=== PATIENT | female | born 1990 | race Caucasian/White ===

== ENCOUNTER 2018-09-03 06:00 | Day surgery (SDC) | payer MEDICAID ==
[2018-09-03] MEDS ORDERED: Dextrose 5%-Lactated Ringers 1,000 ML IV SCH (06:30)
[2018-09-03] MEDS ORDERED: Glycopyrrolate 0.2 MG/ML 2 ML SDV IVPUSH ONE (06:30)
[2018-09-03] MEDS ORDERED: Propofol 200 MG/20 ML SDV ONE (07:05)
[2018-09-03] MEDS ORDERED: fentaNYL 100 MCG/2 ML SDV ONE (07:05)
[2018-09-03] MEDS ORDERED: Midazolam 1 MG/ML 2 ML SDV ONE (07:05)
[2018-09-03] MEDS ORDERED: Hydrocortisone Sodium Succinate 100 MG/2 ML SDV IV PRN (08:12)
[2018-09-03] MEDS ORDERED: Famotidine 20 MG/2 ML SDV IV PRN (08:13)
[2018-09-03] MEDS ORDERED: diphenhydrAMINE 50 MG/ML SDV IVPUSH PRN (08:13)
[2018-09-03] MEDS ORDERED: Sodium Chloride 0.9% 1,000 ML IV SCH (08:15)
--- NOTE | 2018-09-09 08:33 | OR ---
DATE OF PROCEDURE: 09/03/2018 SURGEON: Sreekanth Grace MD PREOPERATIVE DIAGNOSES: 1. Weight regain. 2. Epigastric pain and heartburn, status post previous sleeve gastrectomy. POSTOPERATIVE DIAGNOSES: Upper gastrointestinal endoscopy with antral biopsies for CLOtest. ANESTHESIA: IV sedation. INDICATIONS FOR PROCEDURE: This is a 28-year-old, status post sleeve gastrectomy done in [place] in 2014. Recently, she has had further problems with some weight regain, but also having quite a bit in the way of heartburn and epigastric discomfort. The plan is to proceed with an upper GI endoscopy with biopsies and/or dilation as indicated. Potential risks including bleeding and perforation were discussed, and the patient wishes to proceed. DETAILS OF PROCEDURE: The patient was taken to the operating room and placed in a left lateral decubitus position. IV sedation was administered, after which the upper GI endoscope was passed orally through the length of the esophagus and into the area of the sleeve gastrectomy, through the pyloric channel and to the proximal duodenum. Findings included a fair bit of redness in the distal esophagus. As one entered the sleeve gastrectomy, there was a large amount of retained food present, indicative of quite profound gastroparesis. There was quite a bit of redness in the gastric wall. There were no erosions or ulcers seen. The pyloric channel and proximal duodenum were unremarkable. Specifically, there was no outlet obstruction at the level of the pylorus. Biopsies were obtained from the antrum and sent for CLOtest for H. pylori. Minimal bleeding from the biopsy sites was seen, and the procedure was then concluded. Situation subsequently discussed with the patient. At age 28, this is a problem that would be best treated surgically, specifically the severe gastroparesis. It is likely related to longstanding type 2 diabetes mellitus and also possible injury to vagus nerves at the time of the sleeve gastrectomy. Medical management of this would entail termite exterminator use of prokinetic agents, as well as limitations of diet, in terms of an anti-bezoar diet. At age 28, she would be better served by proximal gastrectomy with Ivory-en-Y reconstruction, which would alleviate the problem. After discussion with the patient and family members present, the plan will be to proceed with surgical intervention this coming Sunday. Srekeanth Grace MD /[id number]
== END 2018-09-03 09:45 | disposition home or self-care (01) ==
LOC: JP.SDS 06:00
PROVIDERS: ATTEND Surgery
DX: K21.9 Gastro-esophageal reflux disease without esophagitis (principal); E66.9 Obesity, unspecified; Z68.41 Body mass index [BMI] 40.0-44.9, adult; E28.2 Polycystic ovarian syndrome; R56.9 Unspecified convulsions; F31.9 Bipolar disorder, unspecified; Z87.442 Personal history of urinary calculi; Z88.0 Allergy status to penicillin; Z88.8 Allergy status to other drugs, medicaments and biological substances; Z91.018 Allergy to other foods
CPT/HCPCS: 43239; 81025; 87081; J2250; J2704; J3010; J3490; J7030; J7042; Q0138

== ENCOUNTER 2018-09-06 08:14 | Inpatient (IN) | payer MEDICAID ==
[~2018-09-06 08:14] MED LIST: Dexamethasone 4 MG/ML SDV ONE; Glycopyrrolate 0.2 MG/ML 5 ML MDV ONE; Lidocaine 2% 100 MG/5 ML Syringe IVPUSH SCH; Neostigmine Methylsulfate 1 MG/ML 5 ML Syringe ONE; Ondansetron 4 MG/2 ML SDV ONE; Propofol 200 MG/20 ML SDV ONE; Rocuronium 50 MG/5 ML Vial ONE; Succinylcholine 200 MG/10 ML MDV ONE; cefOXitin 2 GM Vial ONE
[2018-09-06] MEDS ORDERED: Scopolamine 1.5 MG Transdermal Patch TRDERM ONE (08:30)
[2018-09-06] MEDS ORDERED: Gabapentin 300 MG Cap PO ONE (08:30)
[2018-09-06] MEDS ORDERED: Celecoxib 200 MG Cap PO ONE (08:30)
[2018-09-06] MEDS ORDERED: Acetaminophen 500 MG Tab PO ONE (08:30)
[2018-09-06] MEDS ORDERED: Dextrose 5%-Lactated Ringers 1,000 ML IV SCH (09:00)
[2018-09-06] MEDS ORDERED: cefOXitin 2 GM in Sodium Chloride 0.9% 50 ML IV ONE (10:15)
[2018-09-06] MEDS ORDERED: Ketamine 500 MG/5 ML MDV IV SCH (10:30)
[2018-09-06] MEDS ORDERED: Ketamine 50 MG in Sodium Chloride 0.9% 49.5 ML IV SCH (10:30)
[2018-09-06] MEDS ORDERED: fentaNYL 100 MCG/2 ML SDV IVPUSH ONE ×2 (13:09→13:24)
[2018-09-06] MEDS ORDERED: hydrOXYzine HCl 100 MG/2 ML SDV IM ONE (13:09)
[2018-09-06] MEDS ORDERED: HYDROmorphone 0.5 MG/0.5 ML Syringe IVPUSH PRN (15:00)
[2018-09-06] MEDS ORDERED: hydrOXYzine HCl 100 MG/2 ML SDV IM PRN (15:00)
[2018-09-06] MEDS ORDERED: Ondansetron 4 MG/2 ML SDV IVPUSH PRN (15:00)
[2018-09-06] MEDS ORDERED: Labetalol 20 MG/4 ML Syringe IVPUSH PRN (15:00)
[2018-09-06] MEDS ORDERED: Metoclopramide 10 MG/2 ML SDV IVPUSH PRN (15:00)
[2018-09-06] MEDS ORDERED: diphenhydrAMINE 50 MG/ML SDV IVPUSH PRN (15:00)
[2018-09-06] MEDS ORDERED: HYDROmorphone 1 MG/ML Syringe IV PRN (15:00)
[2018-09-06] MEDS: Acetaminophen Soln 650 MG/20.3 ML UD Cup PO SCH ×2 (16:40→20:15)
[2018-09-06] MEDS: MVI, Adult with Vitamin K 10 ML, Thiamine 200 MG, Chromium/Copper/Mang/Selen/Zn 1 ML in... IV SCH ×4 (16:40)
[2018-09-06] MEDS: Pantoprazole 40 MG Vial IVPUSH SCH (16:40)
[2018-09-06] MEDS: Lidocaine 0.4%/D5W 2 GM/500 ML BAG IV SCH (16:42)
[2018-09-06] MEDS: Heparin Sodium 5,000 Units/ML Vial SUBCUT SCH (18:03)
[2018-09-06] MEDS: cefOXitin 2 GM in Sodium Chloride 0.9% 50 ML IV SCH (18:03)
[2018-09-06] MEDS: Gabapentin 250 MG/5 ML Solution ML 470 ML Bottle PO SCH (20:14)
[2018-09-06] MEDS: Metoprolol Tartrate 25 MG Tab PO SCH (20:15)
[2018-09-06] MEDS: Dextrose 5%-Lactated Ringers 1,000 ML IV SCH (22:16)
[2018-09-07] MEDS: cefOXitin 2 GM in Sodium Chloride 0.9% 50 ML IV SCH ×2 (00:06→06:09)
[2018-09-07] MEDS ORDERED: Iohexol 647 MG/ML 50 ML SDV PO PRN (00:49)
[2018-09-07] MEDS: Acetaminophen Soln 650 MG/20.3 ML UD Cup PO SCH ×4 (02:28→21:04)
--- NOTE | 2018-09-07 02:59 | CRLCR ---
Indication: Ivory-en-Y gastric bypass Technique: Abdomen 2 view Comparison: None Findings/Impression: Two submitted images. On the 1st, contrast is present within the distal esophagus extending into the proximal small bowel without gross extravasation. Left upper quadrant drain is seen adjacent. On the subsequent image, there is filling of the small bowel with some linear high density adjacent to the drain although this appears to be part of a suture line. No convincing extravasation. At the inferior margin of the film note is made of a clip, probably part of a tubal ligation. Dictated by Quan Shafer MD @ Sep 07 2018 2:55AM Signed by Dr. Quan Shafer @ Sep 07 2018 2:57AM
[2018-09-07] MEDS: Dextrose 5%-Lactated Ringers 1,000 ML IV SCH (04:20)
[2018-09-07] MEDS: Heparin Sodium 5,000 Units/ML Vial SUBCUT SCH ×2 (06:09→18:18)
[2018-09-07] MEDS: Metoprolol Tartrate 25 MG Tab PO SCH ×2 (08:41→21:09)
[2018-09-07] MEDS: Celecoxib 200 MG Cap PO SCH (08:41)
[2018-09-07] MEDS ORDERED: LORazepam 0.5 MG Tab PO PRN (08:41)
[2018-09-07] MEDS ORDERED: Dextrose 5%-Lactated Ringers 1,000 ML IV SCH (08:45)
[2018-09-07] MEDS: Gabapentin 250 MG/5 ML Solution ML 470 ML Bottle PO SCH ×3 (08:49→21:03)
[2018-09-07] MEDS: DULoxetine 30 MG Cap PO SCH ×2 (09:48→21:03)
[2018-09-07] MEDS: Sodium Ferric Gluconate Cmplex 250 MG in Sodium Chloride 0.9% 100 ML IV SCH (09:48)
[2018-09-07] MEDS: Lidocaine 0.4%/D5W 2 GM/500 ML BAG IV SCH (09:49)
[2018-09-07] MEDS: metFORMIN 500 MG Tab PO SCH (09:49)
[2018-09-07] MEDS: Topiramate 100 MG Tab PO SCH ×2 (09:49→22:20)
[2018-09-07] MEDS: SCOPOLAMINE PATCH CHECK TOP SCH (09:49)
[2018-09-07] MEDS: MVI, Adult with Vitamin K 10 ML, Thiamine 200 MG, Chromium/Copper/Mang/Selen/Zn 1 ML in... IV SCH ×4 (16:41)
[2018-09-07] MEDS: Pantoprazole 40 MG Vial IVPUSH SCH (16:41)
[2018-09-07] MEDS ORDERED: Lurasidone 40 MG Tab PO SCH (21:00)
[2018-09-08] MEDS: Acetaminophen Soln 650 MG/20.3 ML UD Cup PO SCH ×2 (04:12→09:45)
[2018-09-08] MEDS: Heparin Sodium 5,000 Units/ML Vial SUBCUT SCH (05:20)
[2018-09-08] MEDS: Sodium Ferric Gluconate Cmplex 250 MG in Sodium Chloride 0.9% 100 ML IV SCH (08:37)
[2018-09-08] MEDS: Metoprolol Tartrate 25 MG Tab PO SCH (08:38)
[2018-09-08] MEDS: DULoxetine 30 MG Cap PO SCH (08:38)
[2018-09-08] MEDS: metFORMIN 500 MG Tab PO SCH (08:38)
[2018-09-08] MEDS: Celecoxib 200 MG Cap PO SCH (08:39)
[2018-09-08] MEDS ORDERED: Cyanocobalamin (Vitamin B12) 1,000 MCG/ML SDV IM ONE (09:00)
[2018-09-08] MEDS: Gabapentin 250 MG/5 ML Solution ML 470 ML Bottle PO SCH (09:44)
[2018-09-08] MEDS: Topiramate 100 MG Tab PO SCH (10:46)
[2018-09-08] MEDS: SCOPOLAMINE PATCH CHECK TOP SCH (10:47)
--- NOTE | 2018-09-08 12:06 | PN ---
DATE OF SERVICE: 09/07/2018 This is postop day 1 for partial gastrectomy with Ivory-en-Y reconstruction. The upper GI x- ray looks good today. We will go up to a step-2 diet without solids today. look fairly good, and we will restart her pertinent oral medications, maximize activity, and work with pulmonary toilet. Sreekanth Grace MD /[id number]
--- NOTE | 2018-09-09 10:51 | DISCH ---
FINAL DIAGNOSES: 1. Previous sleeve gastrectomy complicated by severe gastroparesis. 2. Hepatomegaly. 3. Paraesophageal diaphragmatic hernia. 4. Morbid obesity. 5. History of seizure disorder. 6. Polycystic ovary syndrome. 7. History of type 2 diabetes mellitus, now in remission. 8. Menorrhagia. 9. Iron deficiency status. OPERATIVE PROCEDURE: This was done on 09/06/2018, diagnostic laparoscopy with: 1. Partial gastrectomy with Ivory-en-Y gastrojejunostomy. 2. Jean-Paul-Cut needle liver biopsy. 3. Repair of diaphragmatic hernia. SUMMARY: This 28-year-old is presenting status post sleeve gastrectomy done in [place] in 2014. Recently, she has had significant problems with weight regain, and at the time of upper endoscopy earlier this week, she was noted to have severe gastroparesis with large volume of retained food within the remaining stomach. This is likely related to possible previous diabetic status, as well as possible truncal vagotomy at the time of the sleeve gastrectomy. At any rate, rather than treat this as a lifetime disorder, we elected to proceed with a proximal partial gastrectomy with Ivory-en-Y reconstruction, which should alleviate the problem of the gastroparesis. This would be the standard treatment for this, and from a surgical standpoint, the patient did well postoperatively. She will be discharged home on step 2 diet until the first appointment, which will be with Kathy Adhikari at [facility] on 09/16/2018. For pain medication postoperatively, she will be taking Celebrex and Tylenol. Otherwise, her medications are reviewed on the medication reconciliation sheet, which will be faxed to clinic. One additional finding was that the patient had an iron-deficiency status, which was treated with 3 doses of ferrous gluconate 250 mg. At this point, we are having her hold her iron supplements at home, and this should be addressed at the first appointment, giving her some iron formulation which would be better absorbed with her current GI anatomy.
--- NOTE | 2018-09-09 12:24 | OR ---
DATE OF PROCEDURE: 09/06/2018 PREOPERATIVE DIAGNOSIS: Status post sleeve gastrectomy complicated by severe gastroparesis and large gastric bezoar. POSTOPERATIVE DIAGNOSES: 1. Status post sleeve gastrectomy complicated by severe gastroparesis and large gastric bezoar. 2. Marked hepatomegaly. 3. Paraesophageal diaphragmatic hernia. OPERATIVE PROCEDURE: Diagnostic laparoscopy with: 1. Partial gastrectomy with Ivory-en-Y gastrojejunostomy (18583). 2. Jean-Paul-Cut needle liver biopsy (64065). 3. Repair of paraesophageal diaphragmatic hernia (19953). ANESTHESIA: General. FULL STACK DEVELOPER: Kathy Adhikari PA-C, and EBONY Jenkins. INDICATIONS FOR PROCEDURE: This 28-year-old is status post previous sleeve gastrectomy done in [place]. She presents with ongoing epigastric pain and quite marked reflux. An upper endoscopy done earlier this week showed a large gastric bezoar present associated with likely severe gastroparesis. This was likely associated with the patient's type 2 diabetes mellitus as well as possible vagotomy during the conduct of the sleeve gastrectomy. At any rate, medical options would include dietary restrictions and prokinetic agents which would be probably of marginal benefit and would require lifetime maintenance. Given this, the patient has opted to proceed with a surgical strategy which would include a partial gastrectomy with Ivory-en-Y reconstruction which would obviate the need to empty the remainder of the stomach. The potential risks of the procedure including bleeding, infection, leaks from various GI tract closures, problems with bowel obstruction over time as well as possibility of cardiopulmonary, septic, or hemorrhagic complications leading to were discussed and the patient wishes to proceed. DETAILS OF PROCEDURE: The patient was taken to the operating room and placed in a supine position. After general endotracheal anesthesia was induced, she was converted to a lithotomy position and the abdomen prepped and draped. At 15 cm inferior and 5 cm left of xiphoid process, a transverse incision was made and peritoneal cavity entered under direct vision with an Optiview trocar and inflated to 15 mmHg with CO2. The laparoscope was then reinserted. No underlying trocar insertion site injuries were seen. Following this, 5 additional trocars were placed across the upper and mid abdomen, general exploration was undertaken. The patient was noted to have a fairly marked hepatomegaly with liver volume being roughly 2 to 3 times normal and liver grossly fatty infiltrated. Given this, Jean-Paul-Cut needle biopsy was obtained from the left lobe of liver. Minimal bleeding from the biopsy sites was controlled with electrocautery. As when elevated up the liver, some minor adhesions were encountered. The stomach was then encircled at a point just below the esophagogastric junction using blunt dissection and then divided there with 2 firings of the ANDRADE black loads. A portion of the stomach below this was somewhat devascularized and was resected as well completing the partial proximal gastrectomy as specimen was delivered to the left lateral trocar site. Following this, then the limb was retracted. The small bowel was identified at the ligament of Treitz and traced out 200 cm distal to that point where it was divided transversely with a ANDRADE stapler. The small bowel was then traced out an additional 200 cm where the side-to- side enteroenterostomy was accomplished with internal firing of the Endo-ANDRADE 60 mm stapler, common opening was then closed transversely with the same stapler, angles anastomosed, and mesenteric defect approximated with some 0 Ethibond stitch along with 4 mL of fibrin sealant. The divided end of the Ivory limb was then brought up through an antecolic approach up to the level of the gastric pouch and it came up there without significant tension. The anvil of a 25-mm EEA stapler was then attached to a Goodman sump type tube. The latter was brought down through the mouth, taken out through a small opening in the gastric pouch allowing the anvil likewise to be pulled down within the gastric pouch. The divided end of the Ivory limb was then opened and the main body of the EEA stapler passed several centimeters into the lumen of small bowel, brought up the anvil and united with it, thus creating the gastrojejunostomy. Upon removal of the stapler, double donuts of mucosa were noted within it. The small bowel was closed off with a vascular staple line. Gastrojejunostomy was reinforced with some 3-0 Vicryl seromuscular stitch along with fibrin sealant. The leak test was accomplished with injection of 120 mL of air in the gastric pouch while submerged with cefoxitin-containing saline solution. No leaks were identified. Two Escobar-Villaseñor drains were then placed adjacent to gastrojejunostomy, taken out through subcostal trocar sites with no further problems noted. Trocars were removed and the peritoneal cavity deflated. Incisions were closed with 4-0 Vicryl skin stitch, which was also used to fix the drain and the patient was taken to the recovery room in satisfactory condition. Physician campaign assistant, Kathy Adhikari, played an essential role in assisting in this case, helping to position the patient, retract structures as needed, as well as suturing and cutting sutures when indicated. Her presence improved the patient's safety and decreased the operative time. Sreekanth Grace MD /[id number]
--- NOTE | 2018-09-17 10:58 | OR ---
DATE OF PROCEDURE: 09/06/2018 ADDENDUM: DETAILS OF PROCEDURE: The patient during the course of the dissection was noted to have a paraesophageal diaphragmatic hernia. This contained some prolapse of the stomach posteriorly as well as some perigastric fat. After the initial gastric resection, the hernia was easily visualized and was repaired posteriorly with some 0 Ethibond sutures reinforced with PTFE pledgets. Sreekanth Grace MD /[id number]
== END 2018-09-08 11:20 | disposition home or self-care (01) | DRG 327 ==
LOC: JP.SDSSCHI 08:14 → JP.SDS 08:14 → EDSTATUS 09:15 → JP.2SS 12:55
PROVIDERS: ADMIT Surgery; ATTEND Surgery
PROC: 0D164ZA Bypass Stomach to Jejunum, Percutaneous Endoscopic Approach (ICD-10-PCS; principal; 2018-09-06)
PROC: 0FB24ZX Excision of Left Lobe Liver, Percutaneous Endoscopic Approach, Diagnostic (ICD-10-PCS; 2018-09-06)
PROC: 0DB64ZZ Excision of Stomach, Percutaneous Endoscopic Approach (ICD-10-PCS; 2018-09-06)
PROC: 0BQT4ZZ Repair Diaphragm, Percutaneous Endoscopic Approach (ICD-10-PCS; 2018-09-06)
DX: K31.84 Gastroparesis (principal); K95.89 Other complications of other bariatric procedure; Z68.42 Body mass index [BMI] 45.0-49.9, adult; T18.2XXA Foreign body in stomach, initial encounter; R16.0 Hepatomegaly, not elsewhere classified; K44.9 Diaphragmatic hernia without obstruction or gangrene; E66.01 Morbid (severe) obesity due to excess calories; Y83.8 Other surgical procedures as the cause of abnormal reaction of the patient, or of later complication, without mention of misadventure at the time of the procedure; K21.9 Gastro-esophageal reflux disease without esophagitis; Z79.84 Long term (current) use of oral hypoglycemic drugs; K76.0 Fatty (change of) liver, not elsewhere classified; F31.70 Bipolar disorder, currently in remission, most recent episode unspecified; E28.2 Polycystic ovarian syndrome; E61.1 Iron deficiency; Z86.39 Personal history of other endocrine, nutritional and metabolic disease; G40.909 Epilepsy, unspecified, not intractable, without status epilepticus; G43.109 Migraine with aura, not intractable, without status migrainosus; Z91.018 Allergy to other foods; Z88.0 Allergy status to penicillin; Z88.8 Allergy status to other drugs, medicaments and biological substances
CPT/HCPCS: 36415; 74240; 82962; 86850; 86900; 86901; 88307; 88313; A9270-GY; C9113; J0171; J0330; J0694; J1100; J1644; J2001; J2405; J2704; J2710; J2795; J2916; J3010; J3410; J3411; J3420; J3490; J7030; J7042; J7050; Q9967

== ENCOUNTER 2018-09-17 19:13 | Emergency (ER) | payer MEDICAID ==
--- NOTE | 2018-09-17 19:55 | EDM.PDOC ---
ED HPI GENERAL MEDICAL PROBLEM - General Chief Complaint: General Stated Complaint: INFECTION AT SURGERY SITE Time Seen by Provider: 09/17/18 19:49 Source of Information: Reports: Patient, Family, Old Records, RN Notes Reviewed History Limitations: Reports: No Limitations - History of Present Illness INITIAL COMMENTS - FREE TEXT/NARRATIVE: 28-year-old female presents emergency department today with concerns about surgical site infection, she is postop day 11, partial gastrectomy, she has appreciated yellow fluid draining from one of her surgical sites she does complain of tenderness around the sites denies any fevers does complain of nausea Upper Abdomen Pain Score (Numeric/FACES): 5 - Related Data Allergies Allergy/AdvReac Type Severity Reaction Status Date / Time lamotrigine Allergy Rash Verified 09/17/18 19:39 Penicillins Allergy Rash Verified 09/17/18 19:39 chicken derived AdvReac Nausea Verified 09/17/18 19:39 Home Meds: Home Meds DULoxetine [Cymbalta] 60 mg PO BID 08/30/18 [History] Ferrous Sulfate 325 mg PO DAILY 08/30/18 [History] LORazepam [Ativan] 0.5 mg PO TID PRN 08/30/18 [History] Metoprolol Tartrate [Lopressor] 25 mg PO Q12HR 08/30/18 [History] Onabotulinumtoxina [Botox] 155 units IM ASDIRECTED 08/30/18 [History] Topiramate [Topamax] 100 mg PO BID 08/30/18 [History] hydrOXYzine pamoate [Vistaril] 100 mg PO BEDTIME PRN 08/30/18 [History] metFORMIN [Glucophage] 1,000 mg PO DAILY 08/30/18 [History] Lurasidone HCl [Latuda] 80 mg PO BEDTIME 09/03/18 [History] Ergocalciferol (Vitamin D2) [Vitamin D2] 2,000 unit PO DAILY 09/04/18 [History] Past Medical History HEENT History: Reports: Impaired Vision Gastrointestinal History: Reports: GERD, Hiatal Hernia Other Gastrointestinal History: sep 06 2018 gastric bypass revision and hiatal hernia repair Genitourinary History: Reports: Renal Calculus SOCKET PULLER History: Reports: Dysfunctional Uterine Bleeding, Polycystic Ovaries, , Spontaneous Other SOCKET PULLER History: PTOS Musculoskeletal History: Reports: Fracture, Other (See Below) Other Musculoskeletal History: clavical Neurological History: Reports: Migraines, Seizure Psychiatric History: Reports: Anxiety, Bipolar, PTSD Endocrine/Metabolic History: Reports: Obesity/BMI 30+ Hematologic History: Reports: Anemia, Iron Deficiency - Infectious Disease History Infectious Disease History: Reports: Chicken Pox - Past Surgical History HEENT Surgical History: Reports: None GI Surgical History: Reports: Bariatric Procedure, EGD, Hernia Repair/Other, Other (See Below) Other GI Surgeries/Procedures: gastric sleeve Female Surgical History: Reports: Section, Lithotripsy/ESWL, Tubal Ligation Neurological Surgical History: Reports: None Musculoskeletal Surgical History: Reports: None Social & Family History - Family History Family Medical History: Noncontributory - Tobacco Use Smoking Status *Q: Never Smoker - Caffeine Use Caffeine Use: Reports: None - Recreational Drug Use Recreational Drug Use: No ED ROS GENERAL - Review of Systems Review Of Systems: See Below Constitutional: Denies: Fever, Chills HEENT: Reports: No Symptoms Respiratory: Reports: No Symptoms Cardiovascular: Reports: No Symptoms GI/Abdominal: Reports: Abdominal Pain, Nausea. Denies: Vomiting : Reports: No Symptoms Skin: Reports: Wound ED EXAM, GENERAL - Physical Exam Exam: See Below Exam Limited By: No Limitations General Appearance: Alert, WD/WN, No Apparent Distress Respiratory/Chest: No Respiratory Distress GI/Abdominal: Soft, Non-Tender Course - Vital Signs Last Recorded V/S: Last Vital Signs Temp 97.2 F 09/17/18 19:43 Pulse 107 H 09/17/18 19:43 Resp 16 09/17/18 19:43 BP 129/87 09/17/18 19:43 Pulse Ox 94 L 09/17/18 19:43 - Orders/Labs/Meds Labs: Laboratory Tests 09/17/18 09/17/18 09/17/18 Range/Units 20:05 20:05 20:05 WBC 9.1 (4.5-11.0) K/uL RBC 4.38 (3.30-5.50) M/uL Hgb 12.4 (12.0-15.0) g/dL Hct 38.1 (36.0-48.0) % MCV 87 (80-98) fL MCH 28 (27-31) pg MCHC 33 (32-36) % Plt Count 348 (150-400) K/uL Neut % (Auto) 56 (36-66) % Lymph % (Auto) 32 (24-44) % Whiteside % (Auto) 9 H (2-6) % Eos % (Auto) 3 (2-4) % Baso % (Auto) 1 (0-1) % Sodium 137 L (140-148) mmol/L Potassium 3.4 L (3.6-5.2) mmol/L Chloride 102 (100-108) mmol/L Carbon Dioxide 18 L (21-32) mmol/L Anion Gap 20.4 H (5.0-14.0) mmol/L BUN 16 (7-18) mg/dL Creatinine 0.9 (0.6-1.0) mg/dL Est Cr Clr Drug Dosing 93.88 mL/min Estimated GFR (MDRD) > 60 (>60) Glucose 72 L (74-106) mg/dL Calcium 9.4 (8.5-10.1) mg/dL Total Bilirubin 0.4 (0.2-1.0) mg/dL AST 16 (15-37) U/L ALT 35 (12-78) U/L Alkaline Phosphatase 78 (46-116) U/L C-Reactive Protein 1.81 H (0.0-0.3) mg/dL Total Protein 7.4 (6.4-8.2) g/dL Albumin 3.8 (3.4-5.0) g/dL Globulin 3.6 H (2.3-3.5) g/dL Albumin/Globulin Ratio 1.1 L (1.2-2.2) Departure - Departure Time of Disposition: 21:09 Disposition: Home, Self-Care 01 Condition: Fair Clinical Impression: Visit for wound check - Discharge Information Referrals: Toña Monteiro MD [Primary Care Provider] - Forms: ED Department Discharge Additional Instructions: Please follow-up with Dr. Grace in clinic tomorrow morning at 9:30 - Assessment/Plan Plan: Assessment Acuity = acute Site and laterality = wound check Etiology = surgical postop Manifestations = none Location of injury = Home Lab values = CBC, CMP unremarkable CRP slightly elevated 1.8 Plan Called discussed case Dr. Grace at 2100 recommended follow-up in his clinic tomorrow morning at 9:30 AM This note was dictated using [employer] recognition software please call with any questions on syntax or grammar.
== END 2018-09-17 21:25 | disposition home or self-care (01) ==
LOC: JP.ED 19:13
DX: Z48.815 Encounter for surgical aftercare following surgery on the digestive system (principal); K21.9 Gastro-esophageal reflux disease without esophagitis; F31.9 Bipolar disorder, unspecified; F41.9 Anxiety disorder, unspecified; Z79.899 Other long term (current) drug therapy; Z88.0 Allergy status to penicillin; Z91.018 Allergy to other foods
CPT/HCPCS: 36415; 80053; 85025; 86140; 99282; 99283

== ENCOUNTER 2018-09-27 15:42 | Emergency (ER) | payer MEDICAID ==
--- NOTE | 2018-09-27 16:27 | EDM.PDOC ---
ED HPI GENERAL MEDICAL PROBLEM - General Chief Complaint: Gastrointestinal Problem Stated Complaint: RNY SEPTEMBER 06 DEHYDRATED Time Seen by Provider: 09/27/18 16:10 Source of Information: Reports: Patient History Limitations: Reports: No Limitations - History of Present Illness INITIAL COMMENTS - FREE TEXT/NARRATIVE: 20-year-old female had a Ivory-en-Y 3 weeks ago, was doing well but over the past week has been having increased difficulty swallowing and passing food, and over the past 48 hours is having difficulty with water and pills. She doesn't think she's had any fluid for the past 24 hours that she's really kept down. No diarrhea, no fever, no significant pain. Onset: Gradual Duration: Day(s): (Symptoms of worsening over the last 8-10 days) Associated Symptoms: Reports: Nausea/Vomiting. Denies: Fever/Chills, Loss of Appetite, Shortness of Breath Abdomen Pain Score (Numeric/FACES): 3 - Related Data Allergies Allergy/AdvReac Type Severity Reaction Status Date / Time egg Allergy Nausea and Verified 09/27/18 15:57 Vomiting lamotrigine Allergy Rash Verified 09/17/18 19:39 Penicillins Allergy Rash Verified 09/17/18 19:39 chicken derived AdvReac Nausea Verified 09/17/18 19:39 Home Meds: Home Meds DULoxetine [Cymbalta] 120 mg PO DAILY 08/30/18 [History] Ferrous Sulfate 325 mg PO DAILY 08/30/18 [History] LORazepam [Ativan] 0.5 mg PO TID PRN 08/30/18 [History] Metoprolol Tartrate [Lopressor] 25 mg PO Q12HR 08/30/18 [History] Onabotulinumtoxina [Botox] 155 units IM ASDIRECTED 08/30/18 [History] Topiramate [Topamax] 100 mg PO BID 08/30/18 [History] hydrOXYzine pamoate [Vistaril] 100 mg PO BEDTIME PRN 08/30/18 [History] metFORMIN [Glucophage] 1,000 mg PO BEDTIME 08/30/18 [History] Lurasidone HCl [Latuda] 80 mg PO BEDTIME 09/03/18 [History] Ergocalciferol (Vitamin D2) [Vitamin D2] 2,000 unit PO DAILY 09/04/18 [History] Past Medical History HEENT History: Reports: Impaired Vision Cardiovascular History: Reports: Other (See Below) Other Cardiovascular History: hx of tachycardia/uses lopressor Gastrointestinal History: Reports: GERD, Hiatal Hernia Other Gastrointestinal History: sep 06 2018 gastric bypass revision and hiatal hernia repair Genitourinary History: Reports: Renal Calculus ENERGY CONSERVATION SPECIALIST History: Reports: Dysfunctional Uterine Bleeding, Polycystic Ovaries, , Spontaneous Other ENERGY CONSERVATION SPECIALIST History: PTOS Musculoskeletal History: Reports: Fracture, Other (See Below) Other Musculoskeletal History: clavical Neurological History: Reports: Migraines, Seizure Psychiatric History: Reports: Anxiety, Bipolar, PTSD Endocrine/Metabolic History: Reports: Obesity/BMI 30+ Hematologic History: Reports: Anemia, Iron Deficiency - Infectious Disease History Infectious Disease History: Reports: Chicken Pox - Past Surgical History Head Surgeries/Procedures: Reports: None HEENT Surgical History: Reports: None Cardiovascular Surgical History: Reports: None GI Surgical History: Reports: Bariatric Procedure, EGD, Hernia Repair/Other, Other (See Below) Other GI Surgeries/Procedures: gastric sleeve Female Surgical History: Reports: Section, Lithotripsy/ESWL, Tubal Ligation Endocrine Surgical History: Reports: None Neurological Surgical History: Reports: None Musculoskeletal Surgical History: Reports: None Dermatological Surgical History: Reports: None Social & Family History - Family History Family Medical History: Noncontributory - Tobacco Use Smoking Status *Q: Never Smoker Second Hand Smoke Exposure: No - Caffeine Use Caffeine Use: Reports: None - Recreational Drug Use Recreational Drug Use: No ED ROS GENERAL - Review of Systems Review Of Systems: See Below Constitutional: Reports: Malaise, Weakness. Denies: Fever, Chills HEENT: Reports: Eye Discharge Respiratory: Denies: Shortness of Breath Cardiovascular: Denies: Chest Pain GI/Abdominal: Reports: Nausea, Vomiting Skin: Reports: Other (Chronic cystic lesion on her upper back) Neurological: Reports: Dizziness. Denies: Headache Psychiatric: Reports: Anxiety ED EXAM, GI/ABD - Physical Exam Exam: See Below Exam Limited By: No Limitations General Appearance: Alert, No Apparent Distress Eyes: Bilateral: Normal Appearance Throat/Mouth: Other (Slight decreased hydration of oral mucosa) Head: Atraumatic Respiratory/Chest: No Respiratory Distress, Lungs Clear Cardiovascular: Regular Rate, Rhythm. No: Tachycardia GI/Abdominal Exam: Normal Bowel Sounds, Soft, No Distention Extremities: No: Pedal Edema Neurological: Alert, Oriented Psychiatric: Depressed Mood, Flat Affect Skin Exam: Warm, Dry Course - Vital Signs Last Recorded V/S: Last Vital Signs Temp 96.8 F 09/27/18 16:01 Pulse 86 09/27/18 16:01 Resp 16 09/27/18 16:01 BP 109/81 09/27/18 16:01 Pulse Ox 99 09/27/18 16:01 - Orders/Labs/Meds Labs: Laboratory Tests 09/27/18 09/27/18 Range/Units 16:34 16:34 WBC 7.2 (4.5-11.0) K/uL RBC 4.32 (3.30-5.50) M/uL Hgb 12.5 (12.0-15.0) g/dL Hct 37.8 (36.0-48.0) % MCV 88 (80-98) fL MCH 29 (27-31) pg MCHC 33 (32-36) % Plt Count 324 (150-400) K/uL Neut % (Auto) 46 (36-66) % Lymph % (Auto) 37 (24-44) % Ritchie % (Auto) 12 H (2-6) % Eos % (Auto) 5 H (2-4) % Baso % (Auto) 1 (0-1) % Sodium 140 (140-148) mmol/L Potassium 4.3 (3.6-5.2) mmol/L Chloride 109 H (100-108) mmol/L Carbon Dioxide 20 L (21-32) mmol/L Anion Gap 15.3 H (5.0-14.0) mmol/L BUN 10 (7-18) mg/dL Creatinine 0.7 (0.6-1.0) mg/dL Est Cr Clr Drug Dosing 116.35 mL/min Estimated GFR (MDRD) > 60 (>60) Glucose 114 H (74-106) mg/dL Calcium 9.2 (8.5-10.1) mg/dL Total Bilirubin 0.2 (0.2-1.0) mg/dL AST 31 D (15-37) U/L ALT 25 (12-78) U/L Alkaline Phosphatase 63 (46-116) U/L Total Protein 6.4 (6.4-8.2) g/dL Albumin 3.3 L (3.4-5.0) g/dL Globulin 3.1 (2.3-3.5) g/dL Albumin/Globulin Ratio 1.1 L (1.2-2.2) Meds: Medications Discontinued Medications Generic Name Dose Route Start Last Admin Trade Name Wei PRN Reason Stop Dose Admin Sodium Chloride 1,000 mls @ 1,000 mls/hr 09/27/18 16:30 09/27/18 16:34 Normal Saline IV 1,000 mls/hr ASDIRECTED [facility] Administration - Re-Assessments/Exams Free Text/Narrative Re-Assessment/Exam: 09/27/18 16:26 An IV will be started she'll be given 1000 mL of normal saline, CBC and CMP obtained. She'll likely need to be admitted for hydration in preparation for an EGD. 09/27/18 17:38 Labs were relatively normal and reassuring, after discussing her case with Dr. Grace, the patient will remain nothing by mouth after midnight and return for a Gastrodil tomorrow at 8:00. Departure - Departure Time of Disposition: 18:01 Disposition: Home, Self-Care 01 Condition: Good Clinical Impression: Obstruction, esophagus, Dehydration, mild - Discharge Information Instructions: Dehydration, Adult, [id number] Referrals: Sreekanth Grace MD [Primary Care Provider] - Forms: ED Department Discharge Care Plan Goals: Nothing by mouth after midnight, liquids and pured food can be attempted until that time. Return tomorrow to register at 6:30 AM for a procedure at [address] Grace. Return sooner if pain is uncontrolled or you develop other concerns.
[2018-09-27] MEDS ORDERED: Sodium Chloride 0.9% 1,000 ML IV SCH (16:30)
== END 2018-09-27 18:02 | disposition home or self-care (01) ==
LOC: JP.ED 15:42
DX: K22.2 Esophageal obstruction (principal); E86.0 Dehydration; K21.9 Gastro-esophageal reflux disease without esophagitis; F41.9 Anxiety disorder, unspecified; F31.9 Bipolar disorder, unspecified; Z79.899 Other long term (current) drug therapy; Z91.012 Allergy to eggs; Z88.0 Allergy status to penicillin; Z91.018 Allergy to other foods
CPT/HCPCS: 36415; 80053; 85025; 96360; 99284; J7030

== ENCOUNTER 2018-09-28 06:33 | Day surgery (SDC) | payer MEDICAID ==
[2018-09-28] MEDS ORDERED: Lactated Ringers 1,000 ML IV ONE (07:30)
[2018-09-28] MEDS ORDERED: Propofol 200 MG/20 ML SDV ONE (07:54)
[2018-09-28] MEDS ORDERED: Midazolam 1 MG/ML 2 ML SDV ONE (07:54)
[2018-09-28] MEDS ORDERED: fentaNYL 100 MCG/2 ML SDV ONE (07:54)
[2018-09-28] MEDS ORDERED: MVI, Adult with Vitamin K 10 ML, Chromium/Copper/Mang/Selen/Zn 1 ML, Thiamine 200 MG in... IV ONE ×4 (08:30)
[2018-09-28] MEDS ORDERED: Glycopyrrolate 0.2 MG/ML 2 ML SDV IVPUSH ONE (08:30)
[2018-09-28] MEDS ORDERED: Cyanocobalamin (Vitamin B12) 1,000 MCG/ML SDV IM ONE (08:45)
--- NOTE | 2018-09-30 14:34 | OR ---
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 POSTOPERATIVE DIAGNOSIS: Stricture at gastrojejunostomy. PROCEDURE PERFORMED: Upper gastrointestinal endoscopy with dilation of gastrojejunostomy ([id number]). ANESTHESIA: IV sedation. INDICATIONS FOR PROCEDURE: This is a 28-year-old status post recent revisional procedure from a sleeve gastrectomy to Ivory-en-Y gastric bypass status. This was done on 09/08/2018. She presents now with some symptoms suggestive of stricturing at her gastrojejunostomy. The plan is to proceed with upper GI endoscopy with dilation as indicated. Potential risks including bleeding and perforation were discussed, and the patient wishes to proceed. DETAILS OF PROCEDURE: The patient was taken to the operating room and placed in a left lateral decubitus position. IV sedation was administered, after which the upper GI endoscope was passed orally through the length of the esophagus into the area of the gastrojejunostomy. The patient did have a moderate stricture at that level. A Bard gastrointestinal balloon catheter was centered across the anastomosis and inflated to 30- [place] size. This was held in position for one minute after which the balloon catheter was deflated and withdrawn. The scope easily passed through the anastomosis. No complications were noted and the procedure was concluded. The patient was taken to the recovery room in satisfactory condition. Sreekanth Grace MD /[id number]
== END 2018-09-28 10:58 | disposition home or self-care (01) ==
LOC: JP.SDS 06:33
PROVIDERS: ATTEND Surgery
DX: K95.89 Other complications of other bariatric procedure (principal); K21.9 Gastro-esophageal reflux disease without esophagitis; Z91.012 Allergy to eggs; Z88.0 Allergy status to penicillin; Z88.8 Allergy status to other drugs, medicaments and biological substances; Z91.018 Allergy to other foods
CPT/HCPCS: 43245; J2250; J2704; J3010; J3411; J3420; J7120

== ENCOUNTER 2018-10-03 06:32 | Day surgery (SDC) | payer MEDICAID ==
[~2018-10-03 06:32] MED LIST changes: -Dexamethasone 4 MG/ML SDV ONE; -Glycopyrrolate 0.2 MG/ML 5 ML MDV ONE; -Lidocaine 2% 100 MG/5 ML Syringe IVPUSH SCH; +Midazolam 1 MG/ML 2 ML SDV ONE; -Neostigmine Methylsulfate 1 MG/ML 5 ML Syringe ONE; -Ondansetron 4 MG/2 ML SDV ONE; -Rocuronium 50 MG/5 ML Vial ONE; -Succinylcholine 200 MG/10 ML MDV ONE; -cefOXitin 2 GM Vial ONE; +fentaNYL 100 MCG/2 ML SDV ONE
[2018-10-03] MEDS ORDERED: Bupivacaine 0.5% 50 ML MDV ONE (07:09)
[2018-10-03] MEDS ORDERED: Bacitracin Oint 1 GM U/D Packet ONE (07:09)
[2018-10-03] MEDS ORDERED: Lidocaine 1% with EPINEPHrine 1:100,000 50 ML MDV ONE (07:09)
[2018-10-03] MEDS ORDERED: Sodium Chloride 0.9% 1,000 ML IV SCH ×2 (07:15→09:30)
[2018-10-03] MEDS ORDERED: Propofol 200 MG/20 ML SDV ONE (07:55)
[2018-10-03] MEDS ORDERED: Dexamethasone 4 MG/ML SDV ONE (07:59)
[2018-10-03] MEDS ORDERED: Ondansetron 4 MG/2 ML SDV ONE (07:59)
[2018-10-03] MEDS ORDERED: Clindamycin Phosphate 900 MG in Sodium Chloride 0.9% 100 ML IV ONE (08:30)
--- NOTE | 2018-10-04 10:25 | OR ---
DATE OF PROCEDURE: 10/03/2018 SURGEON: Twan Bergeron MD PROCEDURE: Excision of cyst, back, size approximately 3 cm, sebaceous cyst. COMPLICATIONS: None. MACHINE TOOL DRESSER: None. ANESTHESIA: MAC/local. RISKS: Risks, benefits, alternatives, and limitations including, but not limited to infection, bleeding, requirement for reoperation, chronic wound, and the fact that this will or may possibly deform her tattoo directly located over this lesion. PROCEDURE IN DETAIL: The patient was placed in prone position. The skin was anesthetized with 1% lidocaine. A 15 blade was used to dissect down to the cyst. Using electrocautery, this was circumnavigated. This was then removed in toto. This was also cultured. This was then thoroughly irrigated. Observation time of 1 minute was performed to verify no bleeding and none was noted. This was irrigated again. A single piece of quarter-inch iodoform gauze was placed within the remnant area. This was then closed with 2 layers of 3-0 Vicryl and a layer of 3-0 Prolene in running interrupted type fashion. The patient tolerated the procedure well. Twan Bergeron MD /[id number]
== END 2018-10-03 09:39 | disposition home or self-care (01) ==
LOC: JP.SDS 06:32
PROVIDERS: ATTEND Surgery
DX: L72.0 Epidermal cyst (principal)
CPT/HCPCS: 11403; 12032; 87070; 87075; 87205; J1100; J2250; J2405; J2704; J3010; J3490; J7030; 88304